=== PATIENT | female | born 1990 | race Caucasian/White ===

== ENCOUNTER 2017-01-03 02:50 | Emergency (ER) | payer SELFPAY ==
[~2017-01-03] VITALS: Ht 154.9 cm; Wt 50.0 kg
[~2017-01-03 02:50] MED LIST: IBUP-1222 PO; OXYC-302 PO
[2017-01-03] MEDS ORDERED: BIRTH CONTROL (03:58)
[2017-01-03] MEDS ORDERED: FAMOTIDINE 20 MG/2 ML ONE (04:16)
[2017-01-03] MEDS ORDERED: ONDANSETRON 2MG/ML, 2ML ONE (04:16)
[2017-01-03] MEDS ORDERED: SODIUM CHLORIDE 0.9% 1,000ML IVBOLUS ONE (04:30)
[2017-01-03] MEDS ORDERED: ONDANSETRON 2MG/ML, 2ML IVPush ONE (04:30)
[2017-01-03] MEDS ORDERED: SODIUM CHLORIDE FLUSH 10ML SYR IVF ONE (04:30)
[2017-01-03] MEDS ORDERED: FAMOTIDINE 20 MG/2 ML IVP ONE (04:30)
[2017-01-03 04:31] LABS: HEMOGLOBIN 15.2 g/dL (11.7-16.4)
[2017-01-03 04:41] LABS: BLOOD UREA NITROGEN 14 mg/dL (7-18)
[2017-01-03 04:46] LABS: ASPARTATE AMINO TRANSFERASE 17 U/L (15-37)
[2017-01-03 06:10] VITALS: BP 118/71
== END 2017-01-03 06:12 | disposition home or self-care (01) ==
LOC: ED 05:04
DX: E86.0 Dehydration (principal); R11.2 Nausea with vomiting, unspecified; R10.84 Generalized abdominal pain; Z87.891 Personal history of nicotine dependence
CPT/HCPCS: 36415; 80053; 81001; 83690; 84703; 85025; 96361; 96374; 96375; 99284; J2405; J7030; S0028